=== PATIENT | female | born 1945 | race Caucasian/White ===

== ENCOUNTER 2017-11-07 08:37 | Emergency (ER) | payer OTHER ==
[~2017-11-07] VITALS: Ht 165.1 cm; Wt 74.2 kg
[~2017-11-07 08:37] MED LIST: CARVEDILOL6.25 MG PO; FUROSEMIDE20 MG PO; HYDROCHLOROTH12.5 M3 PO; LISINOPRIL20 MG PO
[2017-11-07 09:07] LABS: BASOPHIL (%) 0.7 % (0-1); BASOPHIL COUNT 0.1 K/uL (0-0.1); EOSINOPHIL (%) 1.2 % (0-5); EOSINOPHIL COUNT 0.1 K/uL (0-0.3); HEMATOCRIT 42.3 % (36.0-46.0); HEMOGLOBIN 13.9 G/DL (11.9-15.5); IMMATURE GRANULOCYTE (%) 0.3 % (0.0-0.7); LYMPHOCYTE (%) 16.3 % (15-42); LYMPHOCYTE COUNT 1.2 K/uL (1.0-2.8); MCH 30.2 PG (29.0-34.0); MCHC 32.9 G/DL (30.0-36.0); MONOCYTE (%) 7.6 % (3-12); MONOCYTE COUNT 0.6 K/uL (0-0.8); NEUTROPHIL (%) 73.9 % (45-76); NEUTROPHIL COUNT 5.4 K/uL (1.8-6.4); PLATELET COUNT 245 K/uL (156-360); RBC DIS.WIDTH-CV 13.8 % (11.8-14.6); RBC DIS.WIDTH-SD 46.5 % (39-53); WHITE BLOOD COUNT 7.3 K/uL (4.1-10.2)
[2017-11-07 09:15] LABS: PTT 25.6 SEC (25-37)
[2017-11-07 09:18] LABS: CHLORIDE 104 mEq/L (99-109); POTASSIUM 4.1 mEq/L (3.7-5.4); SODIUM 140 mEq/L (136-147)
[2017-11-07 09:20] LABS: GLUCOSE 132 mg/dL (70-99)
[2017-11-07 09:24] LABS: CREATININE 1.2 mg/dL (0.6-1.3); GFR ESTIMATE (CALCULATED) 47 mL/min/
[2017-11-07 09:25] LABS: UREA NITROGEN (BUN) 23 mg/dL (9-23)
[2017-11-07 09:28] LABS: TROP-I INTERPRETATION NEGATIVE; TROPONIN-I < 0.01 ng/mL (0.0-0.30)
[2017-11-07] MEDS ORDERED: ELIQUIS5 M1 PO (11:49)
[2017-11-07] MEDS ORDERED: METOPROLOL SUCC25 MG PO (11:49)
[2017-11-07] MEDS ORDERED: TOPROL XL50 MG PO (11:54)
[2017-11-07] MEDS ORDERED: METOPROLOL SUCC50 MG PO (12:04)
[2017-11-07 13:18] VITALS: BP 118/94
== END 2017-11-07 13:20 | disposition left against medical advice (07) ==
LOC: EME 08:37
PROVIDERS: Emergency Medicine
DX: I48.91 Unspecified atrial fibrillation (principal); R06.02 Shortness of breath; I11.0 Hypertensive heart disease with heart failure; I50.9 Heart failure, unspecified; Z87.891 Personal history of nicotine dependence
CPT/HCPCS: 71045; 71275; 80048; 83880; 84484; 85025; 85379; 85610; 85730; 93005; 99281; 99285; J1160; J1940; J7030